=== PATIENT | female | born 1955 | race Caucasian/White ===

== ENCOUNTER 2017-04-08 12:19 | Outpatient (CLI) | payer BC ==
[2017-04-08 13:15] LABS: Hemoglobin 14.4 g/dL (12.0-16.0); Mean Corpuscular HGB CONC 32.5 g/dL (32.0-36.0); Mean Corpuscular Volume 95.4 fl (81.0-99.0); Mean Platelet Volume 7.5 fL (7.4-10.4); Platelet Count 192 thou/uL (130-400); Red Blood Cell (RBC) Count 4.63 mill/uL (4.20-5.40); White Blood Cell (WBC) Count 8.2 thou/uL (4.8-10.8)
[2017-04-08 13:26] LABS: Prothrombin Time 13.7 SEC (12.0-14.7)
[2017-04-08 13:34] LABS: Anion Gap 13 mmol/L (10-20); BUN (Urea Nitrogen) 14 mg/dL (9.8-20.1); Calc. Creatinine Clearance 0 mL/min (70-130); Calcium 10.6 mg/dL (7.8-10.44); Carbon Dioxide 26 mmol/L (23-31); Chloride 99 mmol/L (98-107); Estimated GFR-MDRD 72; Glucose 173 mg/dL (80-115); Potassium 3.7 mmol/L (3.5-5.1); Sodium 134 mmol/L (136-145)
== END 2017-04-08 12:20 | disposition home or self-care (01) ==
LOC: LABBT 12:19
PROVIDERS: ATTEND Surgery
DX: Z01.818 Encounter for other preprocedural examination (principal); M50.00 Cervical disc disorder with myelopathy, unspecified cervical region; M54.12 Radiculopathy, cervical region
CPT/HCPCS: 80048; 85027; 85610; 85730; 93005; 93010

== ENCOUNTER 2017-04-09 05:46 | Day surgery (SDC) | payer BC ==
[2017-04-08 12:39] VITALS: BMI 44.6
[2017-04-09] MEDS ORDERED: Sodium Chloride 0.9% 10 ML ONE (06:34)
[2017-04-09] MEDS ORDERED: Thrombin 5000 UNITS/5 ML VIAL ONE (06:34)
[2017-04-09] MEDS ORDERED: CEFAZOLIN/Water 2 GM/20 ML SYRINGE ONE (06:43)
[2017-04-09] MEDS ORDERED: Midazolam HCl 2 mg/2 ml Vial ONE (07:12)
[2017-04-09] MEDS ORDERED: Vecuronium 10 MG VIAL ONE ×3 (07:12→16:54)
[2017-04-09] MEDS ORDERED: Famotidine/PF 20 mg/2ml Vial ONE (07:13)
[2017-04-09] MEDS ORDERED: Fentanyl 250 MCG/5 ML VIAL ONE (07:30)
[2017-04-09] MEDS ORDERED: HYDROmorphone 2 MG/ML VIAL SLOW IVP PRN (09:46)
[2017-04-09] MEDS ORDERED: Ondansetron HCl/PF 4 MG/2 ML Vial IVP PRN ×2 (09:46→10:37)
[2017-04-09] MEDS ORDERED: Promethazine HCl 25 MG/ML VIAL IM PRN ×2 (09:46→10:37)
[2017-04-09] MEDS ORDERED: Promethazine HCl 25 MG/ML VIAL SLOW IVP PRN (09:46)
[2017-04-09] MEDS ORDERED: Meperidine HCl/PF 25 MG/ML VIAL SLOW IVP PRN ×2 (09:46→10:37)
[2017-04-09] MEDS ORDERED: Acetaminophen 325 MG TAB PO PRN (10:37)
[2017-04-09] MEDS ORDERED: Milk Of Magnesia 30 ML UDCUP PO PRN (10:37)
[2017-04-09] MEDS ORDERED: Fleet Enema 133 ML BOT PR PRN (10:37)
[2017-04-09] MEDS ORDERED: Acetaminophen/Codeine 30-300mg Tablet PO PRN (10:37)
[2017-04-09] MEDS ORDERED: Bisacodyl 10 MG SUPP PR PRN (10:37)
[2017-04-09] MEDS ORDERED: HYDROcodone/Acetaminophen 7.5/325 mg Tablet PO PRN (10:37)
[2017-04-09] MEDS ORDERED: Mag-Al 1200 mg/1200 mg/30 ML UDCUP PO PRN (10:37)
[2017-04-09] MEDS ORDERED: diphenhydrAMINE 25 MG CAP PO PRN (10:40)
[2017-04-09] MEDS ORDERED: Fentanyl 100 MCG/2 ML VIAL ONE (11:15)
[2017-04-09] MEDS ORDERED: diphenhydrAMINE 12.5 MG/5 ML UDCUP PO PRN (11:34)
[2017-04-09] MEDS: CEFAZOLIN/Water 2 GM/20 ML SYRINGE SLOW IVP SCH ×2 (13:53→21:42)
[2017-04-09] MEDS: Sodium Chloride 0.9% 1,000 ML IV SCH (13:54)
[2017-04-09] MEDS ORDERED: Propofol 200 MG/20 ML VIAL ONE (16:54)
[2017-04-09] MEDS ORDERED: Lidocaine 1% PF 5 ML VIAL ONE (16:54)
[2017-04-09] MEDS ORDERED: Metoclopramide HCl 10 MG/2 ML VIAL ONE (16:54)
[2017-04-09] MEDS ORDERED: Dexamethasone 20 MG/5 ML VIAL ONE (16:54)
[2017-04-09] MEDS ORDERED: Ondansetron HCl/PF 4 MG/2 ML Vial ONE (16:54)
[2017-04-09] MEDS ORDERED: PHENYLEPHRINE-NS 100 MCG/ML 10 ML SYRINGE ONE (16:54)
[2017-04-09] MEDS ORDERED: Glycopyrrolate 0.2 MG/ML 5 ML SYRINGE ONE (16:54)
--- NOTE | 2017-04-09 16:57 | OP ---
LOCATION: OR 11. WOUND TYPE: Type 1 wound. SURGEON: Juan Mitchell M.D. CLASSIFICATION COUNSELOR: Damián Hill PA-C PREPROCEDURE DIAGNOSES: Neck pain with arm pain, cervical stenosis with spinal cord and nerve root c ompression. POSTPROCEDURE DIAGNOSES: Neck pain with arm pain, cervical stenosis with spinal cord and nerve root compression. PROCEDURES: 1. Anterior C5-C6, C6-C7 diskectomies with decompression of spinal cord and nerve root with preparat ion of the endplates and placement of interbody spacers packed with local bone autograft obtained fro m same incision and allograft, C5-C6, C6-C7 for arthrodesis. 2. Anterior cervical plate and screw fixation C5-C6, C6-C7. 3. Use of operative microscope for microdissection. DESCRIPTION OF PROCEDURE: After informed consent was obtained from the patient, the patient brought to OR 11. Proper patient pause and identification was carried out. She was placed under excellent g eneral endotracheal anesthesia and positioned supine on the operating table. All appropriate points were padded. Then identified a right anterior oblique yoly total approach to the C5, C6, C7 segments . This region was sterilely cleansed, prepped and draped. Proper patient pause and identification w as carried out. The wound was then opened with a combination of sharp, monopolar and blunt dissectio n and proceeding lateral to the tracheoesophageal bundle and medial to the right carotid sheath. We identified the prevertebral layer of deep cervical fascia and the longus colli muscles, these were sw ept laterally and retraction secured. Localization film confirmed our area of interest. We then per formed distraction at C5-C6 and diskectomy at C5-C6 commenced with use of operative microscope and it was used for microdissection with excellent decompression of the common dural tube and C6 nerve root s and the endplates were prepared. Interbody spacer of appropriate dimension was placed and had been packed with local bone autograft obtained from same incision and allograft arthrodesis C5-C6. Distr action was then removed and a distraction at C6-C7 then occurred. We then proceeded to do a diskecto my at C6-C7 with excellent decompression of the common dural tube and the C7 nerve roots and satisfie d with our decompression at that segment. Arthrodesis then occurred with placement of interbody spac er at C6-C7 and preparation of the endplates. This was also packed with local bone autograft from sa me incision and allograft fusion at C6-C7. We then removed the microscope and cervical plate and scr ew fixation at C5, C6, and C7 then occurred, final tightening occurred as well. The wound was then c opiously irrigated. Hemostasis maximized throughout. Wound was closed in anatomical layers over a d rain. The patient then emerged from anesthesia.
[2017-04-09] MEDS: tiZANidine HCl 4 MG TAB PO PRN (23:15)
[2017-04-10] MEDS: Sodium Chloride 0.9% 1,000 ML IV SCH (00:20)
[2017-04-10] MEDS ORDERED: Levothyroxine Sodium 100 MCG TAB PO SCH (06:00)
[2017-04-10] MEDS: CEFAZOLIN/Water 2 GM/20 ML SYRINGE SLOW IVP SCH (06:21)
[2017-04-10 07:43] VITALS: BP 115/72; TEMP 97.8
[2017-04-10] MEDS ORDERED: NIFEdipine XL 30 MG TAB PO SCH (09:00)
[2017-04-10] MEDS ORDERED: Hydrochlorothiazide 25 MG TAB PO SCH (09:00)
[2017-04-10] MEDS ORDERED: Non-Formulary Item 1 EACH (Olmesartan/Hydrochlorothiazide [Olmesartan-Hctz 40-12.5 Mg Tab PO SCH (09:00)
[2017-04-10] MEDS ORDERED: Cepastat Lozenges 1 LOZ PO PRN (10:27)
[2017-04-10] MEDS ORDERED: Chloraseptic Spray 180 ml Bottle PO PRN (10:27)
[2017-04-10] MEDS: tiZANidine HCl 4 MG TAB PO PRN (11:45)
--- NOTE | 2017-04-10 11:45 | PRG ---
DATE OF SERVICE: 04/10/2017 Ms. Fox is postoperative day 1 from anterior cervical diskectomy and fusion. Her arm pain has res olved. She states she even feels as if her feet have less paresthesias and her drain output was 45 m L. We have removed her drain. She is mobilizing. We went over intra and postoperative issues. Fol low up will be arranged in my clinic and we will see how she is doing in our follow up. I went over intraoperative and postoperative issues. Surgery on her lumbar spine will be at least [address] and I have encouraged her regarding weight loss.
== END 2017-04-10 12:00 | disposition home or self-care (01) ==
LOC: SDC 05:46 → SURG A 13:21 → SDC 04-10 12:00
PROVIDERS: ATTEND Surgery
PROC: 0RG23A0 Fusion of 2 or more Cervical Vertebral Joints with Interbody Fusion Device, Anterior Approach, Anterior Column, Percutaneous Approach (ICD-10-PCS; principal; 2017-04-10)
DX: M48.02 Spinal stenosis, cervical region (principal); M54.12 Radiculopathy, cervical region; I10 Essential (primary) hypertension; K21.9 Gastro-esophageal reflux disease without esophagitis; E03.9 Hypothyroidism, unspecified; F17.200 Nicotine dependence, unspecified, uncomplicated; Z79.899 Other long term (current) drug therapy; Z88.5 Allergy status to narcotic agent; Z88.2 Allergy status to sulfonamides; Z91.011 Allergy to milk products; Z90.49 Acquired absence of other specified parts of digestive tract; Z90.710 Acquired absence of both cervix and uterus; Z90.722 Acquired absence of ovaries, bilateral; Z90.79 Acquired absence of other genital organ(s); Z98.890 Other specified postprocedural states
CPT/HCPCS: 76001; A4216; C1713; J0131; J1100; J2001; J2175; J2250; J2405; J2704; J2765; J3010; J3490; S0028

== ENCOUNTER 2017-04-13 15:38 | Emergency (ER) | payer BC ==
[2017-04-13] MEDS ORDERED: ISOVUE-370 76%-LOCM 1 ML ONE (15:50)
[2017-04-13 17:33] LABS: #Eosinphils 0.1 thou/uL (0.0-0.7); #Lymphocytes 1.5 thou/uL (1.20-3.40); #Monocytes 0.6 thou/uL (0.11-0.59); #Neutrophils 6.3 thou/uL (1.40-6.50); %Basophils 0.3 % (0.0-1.0); %Eosinophils 0.9 % (0.0-10.0); %Lymphocytes 17.1 % (21.0-51.0); %Monocytes 7.1 % (0.0-10.0); %Neutrophils 74.7 % (42.0-75.0); Hemoglobin 14.3 g/dL (12.0-16.0); Mean Corpuscular HGB CONC 32.7 g/dL (32.0-36.0); Mean Corpuscular Hemoglobin 30.8 pg (27.0-31.0); Mean Corpuscular Volume 94.2 fl (81.0-99.0); Mean Platelet Volume 7.1 fL (7.4-10.4); Platelet Count 216 thou/uL (130-400); Red Blood Cell (RBC) Count 4.63 mill/uL (4.20-5.40); White Blood Cell (WBC) Count 8.5 thou/uL (4.8-10.8)
[2017-04-13 17:55] LABS: ALT (SGPT) 35 U/L (8-55); AST (SGOT) 36 U/L (5-34); Albumin 4.3 g/dL (3.4-4.8); Alkaline Phosphatase 91 U/L (40-150); Anion Gap 15 mmol/L (10-20); BUN (Urea Nitrogen) 9 mg/dL (9.8-20.1); Bilirubin, Total 1.2 mg/dL (0.2-1.2); Calc. Creatinine Clearance 0 mL/min (70-130); Calcium 10.3 mg/dL (7.8-10.44); Carbon Dioxide 24 mmol/L (23-31); Chloride 101 mmol/L (98-107); Estimated GFR-MDRD 70; Globulin 3.3 g/dL (2.4-3.5); Glucose 120 mg/dL (80-115); Potassium 3.7 mmol/L (3.5-5.1); Protein, Total 7.6 g/dL (6.0-8.3); Sodium 136 mmol/L (136-145)
[2017-04-13] MEDS ORDERED: Acetaminophen 1,000 MG in Premix Bag 1 BAG IVPB SCH (18:30)
[2017-04-13] MEDS ORDERED: Dexamethasone 4 mg/ml Vial ONE (20:02)
--- NOTE | 2017-04-13 20:29 | CT ---
CT NECK WITH IV CONTRAST: Date: 04-13-17 History: Post op complications. Patient complains of difficulty swallowing after cervical spinal surg cassie on . Patient reports chills and difficulty swallowing since the surgery. Muscle spasms. Technique: Contiguous axial CT images are obtained through the cervical spine from the base of the br ain to the upper chest after the administration of intravenous contrast. FINDINGS: There are post-surgical changes related to anterior cervical fusion of the C5-6 and C6-7 levels with anterior plate and screws transfixing these levels. Intradiscal prostheses are noted in place as well . There is a fluid collection in the prevertebral space which extends from the level of the superior en dplate of the C2 vertebral body to the level of the T1 vertebral body, and this collection measures 9 .1 cm craniocaudal x 3 cm transverse x 1.9 cm AP. Punctate foci of gas are present within this collec tion. There is slight thin rim of enhancement also present. Findings are worrisome for infection/absc ess collection. The bilateral parotid and submandibular glands as well as thyroid gland have a normal CT appearance. There is minimal subcutaneous edema and gas seen on the right at the level of the hyoid bone likely r elated to post-surgical changes. No fluid collection is seen in the subcutaneous soft tissues. Multilevel degenerative changes are seen in the cervical spine. The left mastoid air cells are not well pneumatized. The right mastoid air cells as well as visualize d paranasal sinuses are clear. The visualized upper lobes are clear aside from minimal atelectasis. IMPRESSION: 1. Fluid collection with punctate foci of gas in prevertebral space extending from the level of the s uperior endplate of the C3 vertebral body to the level of the T1 vertebral body. While this may be re lated to recent post-operative changes, findings are worrisome for abscess collection. Clinical corre lation is recommended. 2. Post-surgical changes related to anterior cervical fusion of C5 through C7. POS: [facility]
== END 2017-04-13 20:55 | disposition home or self-care (01) ==
LOC: ERS 15:38
DX: M96.842 Postprocedural seroma of a musculoskeletal structure following a musculoskeletal system procedure (principal); E03.9 Hypothyroidism, unspecified; I10 Essential (primary) hypertension; K21.9 Gastro-esophageal reflux disease without esophagitis; F41.9 Anxiety disorder, unspecified; F32.9 Major depressive disorder, single episode, unspecified; Z87.891 Personal history of nicotine dependence
CPT/HCPCS: 36415; 70491; 80053; 85025; 96361; 96374; 96375; J0131; J1100

== ENCOUNTER 2017-05-22 09:50 | Outpatient (CLI) | payer BC ==
--- NOTE | 2017-05-22 11:10 | RAD ---
FOUR VIEWS CERVICAL SPINE: DATE: 05/22/17. COMPARISON: None. HISTORY: Cervical radiculopathy, neck pain, and bilateral hand tingling. FINDINGS: Anterior diskectomy and fusion hardware noted at C5-6/C6-7. There is mild degenerative change at the atlantoaxial interspace. Open-mouth odontoid view demonstrates a normal-appearing dens in C1-2 yuri culation. Frontal imaging demonstrates multilevel bilateral facet and uncovertebral osteophyte formation, left greater than right, most prominent at the C3-4 level. No prevertebral soft tissue swelling or radiographic evidence of hardware failure. Minimal anterolisthesis at C4-5 noted measuring just over 3 mm. IMPRESSION: Postoperative and degenerative changes within the cervical spine as described above. POS: [facility]
== END 2017-05-22 09:51 | disposition home or self-care (01) ==
LOC: TBSIIMAG 09:50
PROVIDERS: ATTEND Surgery
DX: M47.22 Other spondylosis with radiculopathy, cervical region (principal); Z98.1 Arthrodesis status
CPT/HCPCS: 72040

== ENCOUNTER 2017-05-24 19:47 | Emergency (ER) | payer BC ==
--- NOTE | 2017-05-24 20:20 | RAD ---
PORTABLE CHEST: Date: 05/24/17 HISTORY: Chest pain. FINDINGS: Lungs are clear. Heart size upper normal and stable. Aortic calcification. Vascular markings normal. IMPRESSION: No acute findings. POS: [facility]
[2017-05-24 20:44] LABS: #Basophils 0.1 thou/uL (0.0-0.2); #Eosinphils 0.1 thou/uL (0.0-0.7); #Lymphocytes 1.8 thou/uL (1.20-3.40); #Monocytes 0.6 thou/uL (0.11-0.59); #Neutrophils 6.3 thou/uL (1.40-6.50); %Basophils 0.6 % (0.0-1.0); %Eosinophils 0.7 % (0.0-10.0); %Lymphocytes 20.4 % (21.0-51.0); %Monocytes 7.1 % (0.0-10.0); %Neutrophils 71.2 % (42.0-75.0); Hemoglobin 14.8 g/dL (12.0-16.0); Mean Corpuscular HGB CONC 33.4 g/dL (32.0-36.0); Mean Corpuscular Hemoglobin 31.2 pg (27.0-31.0); Mean Corpuscular Volume 93.5 fl (81.0-99.0); Platelet Count 191 thou/uL (130-400); RBC Distribution Width 12.4 % (11.5-14.5); Red Blood Cell (RBC) Count 4.75 mill/uL (4.20-5.40); White Blood Cell (WBC) Count 8.8 thou/uL (4.8-10.8)
[2017-05-24 21:08] LABS: ALT (SGPT) 77 U/L (8-55); AST (SGOT) 85 U/L (5-34); Albumin 4.2 g/dL (3.4-4.8); Alkaline Phosphatase 142 U/L (40-150); Anion Gap 16 mmol/L (10-20); BUN (Urea Nitrogen) 16 mg/dL (9.8-20.1); Bilirubin, Total 0.8 mg/dL (0.2-1.2); CK (CPK) 73 U/L (29-168); Calc. Creatinine Clearance 0 mL/min (70-130); Calcium 9.9 mg/dL (7.8-10.44); Carbon Dioxide 24 mmol/L (23-31); Chloride 99 mmol/L (98-107); Estimated GFR-MDRD 51; Globulin 3.4 g/dL (2.4-3.5); Glucose 161 mg/dL (80-115); Potassium 3.7 mmol/L (3.5-5.1); Protein, Total 7.6 g/dL (6.0-8.3); Sodium 135 mmol/L (136-145)
[2017-05-24 21:11] LABS: CKMB 1.4 ng/mL (0-6.6); Troponin I Less than 0.010 ng/mL (< 0.028)
== END 2017-05-24 23:40 | disposition home or self-care (01) ==
LOC: ERS 19:47
DX: R00.2 Palpitations (principal); E66.01 Morbid (severe) obesity due to excess calories; I10 Essential (primary) hypertension; E11.9 Type 2 diabetes mellitus without complications; E03.9 Hypothyroidism, unspecified; K21.9 Gastro-esophageal reflux disease without esophagitis; F41.9 Anxiety disorder, unspecified; F32.9 Major depressive disorder, single episode, unspecified; Z87.891 Personal history of nicotine dependence; Z79.899 Other long term (current) drug therapy
CPT/HCPCS: 71045; 80053; 82553; 84484; 85025; 93005

== ENCOUNTER 2017-06-01 12:07 | Outpatient (CLI) | payer BC ==
--- NOTE | 2017-06-01 14:54 | ULT ---
ABDOMINAL ULTRASOUND: Date: 06-01-17 History: Elevated liver function test. Comparison: No available. FINDINGS: Distal abdominal aorta is not well visualized, but the mid and proximal abdominal aorta are normal in caliber. Limited visualized portions of the IVC, visualized portions of the pancreas, gallbladder, s pleen, and bilateral kidneys demonstrate a normal sonographic appearance. The right kidney measures 9 .7 cm in length. The left kidney measures 10.3 cm in length. The liver demonstrates increased echogenicity suggesting diffuse fatty infiltration. Liver is also olivia rderline enlarged measuring 17.6 cm in craniocaudal dimensions. The common duct measures 0.63 cm in diameter which is within normal limits for patient's age. IMPRESSION: 1. Borderline hepatomegaly with diffuse fatty infiltration of the liver. POS: [facility]
== END 2017-06-01 12:08 | disposition home or self-care (01) ==
LOC: ULT 12:07
PROVIDERS: ATTEND Internal Medicine Gastroenterology
DX: K21.9 Gastro-esophageal reflux disease without esophagitis (principal); R14.2 Eructation; R94.5 Abnormal results of liver function studies
CPT/HCPCS: 76700

== ENCOUNTER 2017-06-02 22:35 | Emergency (ER) | payer BC ==
[2017-06-02 23:46] LABS: #Basophils 0.1 thou/uL (0.0-0.2); #Eosinphils 0.1 thou/uL (0.0-0.7); #Lymphocytes 1.3 thou/uL (1.20-3.40); #Monocytes 0.6 thou/uL (0.11-0.59); #Neutrophils 5.6 thou/uL (1.40-6.50); %Basophils 0.7 % (0.0-1.0); %Eosinophils 1.1 % (0.0-10.0); %Lymphocytes 17.3 % (21.0-51.0); %Monocytes 7.2 % (0.0-10.0); %Neutrophils 73.6 % (42.0-75.0); Hemoglobin 14.8 g/dL (12.0-16.0); Mean Corpuscular HGB CONC 33.2 g/dL (32.0-36.0); Mean Corpuscular Hemoglobin 30.3 pg (27.0-31.0); Mean Corpuscular Volume 91.3 fl (81.0-99.0); Mean Platelet Volume 7.5 fL (7.4-10.4); Platelet Count 205 thou/uL (130-400); RBC Distribution Width 12.3 % (11.5-14.5); Red Blood Cell (RBC) Count 4.87 mill/uL (4.20-5.40); White Blood Cell (WBC) Count 7.7 thou/uL (4.8-10.8)
[2017-06-03 00:05] LABS: Anion Gap 14 mmol/L (10-20); BUN (Urea Nitrogen) 14 mg/dL (9.8-20.1); Calc. Creatinine Clearance 0 mL/min (70-130); Calcium 10.1 mg/dL (7.8-10.44); Carbon Dioxide 26 mmol/L (23-31); Chloride 99 mmol/L (98-107); Estimated GFR-MDRD 63; Glucose 125 mg/dL (80-115); Potassium 3.4 mmol/L (3.5-5.1); Sodium 136 mmol/L (136-145)
[2017-06-03 01:55] LABS: ALT (SGPT) 84 U/L (8-55); AST (SGOT) 70 U/L (5-34); Albumin 4.3 g/dL (3.4-4.8); Alkaline Phosphatase 106 U/L (40-150); Bilirubin, Direct 0.5 mg/dL (0.1-0.3); Bilirubin, Total 1.2 mg/dL (0.2-1.2); Protein, Total 7.3 g/dL (6.0-8.3)
== END 2017-06-03 02:19 | disposition home or self-care (01) ==
LOC: ERS 22:35
DX: R20.2 Paresthesia of skin (principal); E03.9 Hypothyroidism, unspecified; I10 Essential (primary) hypertension; K21.9 Gastro-esophageal reflux disease without esophagitis; I65.8 Occlusion and stenosis of other precerebral arteries; F32.9 Major depressive disorder, single episode, unspecified; F41.9 Anxiety disorder, unspecified; Z87.891 Personal history of nicotine dependence; Z79.899 Other long term (current) drug therapy
CPT/HCPCS: 36415; 80048; 80076; 85025; 99284

== ENCOUNTER 2017-07-30 10:12 | Outpatient (CLI) | payer BC | END 2017-07-30 10:13 | disposition home or self-care (01) | LOC: BICMRI 10:12 | PROVIDERS: ATTEND Anesthesiology Pain Medicine | DX: M51.14 Intervertebral disc disorders with radiculopathy, thoracic region (principal) | CPT/HCPCS: 72146 ==